=== PATIENT | male | born 1975 | race Two or more races ===

== ENCOUNTER 2017-11-15 23:46 | Emergency (ER) | payer OTHER ==
[~2017-11-15] VITALS: Ht 175.3 cm; Wt 86.2 kg
[~2017-11-15 23:46] MED LIST: CIPROFLOXACIN500 M2 ORAL
[2017-11-16 01:09] LABS: BASOPHILS % (AUTO) 0.6 % (0.0-2.0); EOSINOPHILS % (AUTO) 1.3 % (0.0-3.0); HEMATOCRIT 52.7 % (42.0-52.0); HEMOGLOBIN 17.7 G/DL (14.2-18.0); LYMPHOCYTES % (AUTO) 25.4 % (20.0-45.0); MEAN CORPUSCULAR VOLUME 92 FL (80-99); MONOCYTES % (AUTO) 11.9 % (1.0-10.0); NEUTROPHILS % (AUTO) 60.7 % (45.0-75.0); PLATELET COUNT 255 K/UL (150-450); RED BLOOD COUNT 5.75 M/UL (4.70-6.10); RED CELL DISTRIBUTION WIDTH 11.4 % (11.6-14.8); WHITE BLOOD COUNT 7.4 K/UL (4.8-10.8)
[2017-11-16 01:12] LABS: APPEARANCE,URINE CLEAR; BILIRUBIN, URINE NEGATIVE (NEGATIVE); GLUCOSE, URINE (UA) NEGATIVE (NEGATIVE); KETONES,URINE NEGATIVE (NEGATIVE); LEUKOCYTE ESTERASE ,URINE 1+ (NEGATIVE); NITRITE,URINE NEGATIVE (NEGATIVE); PH,URINE 5 (4.5-8.0); PROTEIN,URINE 2+ (NEGATIVE); UROBILINOGEN,URINE NORMAL MG/DL (0.0-1.0)
[2017-11-16 01:18] LABS: COLOR,URINE YELLOW
[2017-11-16 01:19] LABS: ANION GAP 8 mmol/L (5-15); BLOOD UREA NITROGEN 19 mg/dL (7-18); CALCIUM 8.2 MG/DL (8.5-10.1); CARBON DIOXIDE 29 MMOL/L (21-32); CHLORIDE 103 MMOL/L (98-107); CREATININE 1.2 MG/DL (0.55-1.30); POTASSIUM 3.6 MMOL/L (3.5-5.1); SODIUM 140 MMOL/L (136-145)
--- NOTE | 2017-11-16 01:44 | Emergency Room Report ---
History of Present Illness General Chief Complaint: Male Urogenital Problems Source: Patient Present Illness HPI Is a 41-year-old male with a history of renal cell carcinoma status post nephrectomy on the left side. He presents with chief complaint of hematuria. Onset was around [place] time. And then now. Out of pain to the left side. No fever chills denies any vomiting. No clots. Similar symptom in the past. His second complaint is right elbow pain. He works for [employer] and does a lot of heavy lifting. Pain with extension. No trauma. No nausea no vomiting. Worse with movement. Allergies: Coded Allergies: No Known Allergies (Unverified , 10/17/16) Patient History Past Medical History: see triage record, old chart reviewed Past Surgical History: other Pertinent Family History: none Social History: Denies: smoking Immunizations: other Reviewed Nursing Documentation: PMH: Agreed, PSxH: Agreed Nursing Documentation-PM Hx Cancer: Yes - kidney, sx 2014 Review of Systems Eye: Denies: eye pain, blurred vision ENT: Denies: ear pain, nose congestion, throat swelling Respiratory: Denies: cough, shortness of breath Cardiovascular: Denies: chest pain, palpitations Gastrointestinal: Denies: abdominal pain, diarrhea, nausea, vomiting Genitourinary: Reports: hematuria Musculoskeletal: Reports: joint pain, Denies: back pain Skin: Denies: rash Neurological: Denies: headache, numbness Endocrine: Denies: increased thirst, increased urine Hematologic/Lymphatic: Denies: easy bruising All Other Systems: negative except mentioned in HPI Physical Exam Vital Signs Date Time Temp Pulse Resp B/P (MAP) Pulse Ox O2 Delivery O2 Flow Rate FiO2 11/15/17 23:48 98.4 111 18 184/120 100 Room Air vitals with high blood pressure Sp02 EP Interpretation: reviewed, normal General Appearance: well appearing, no apparent distress, alert Head: normocephalic, atraumatic Eyes: bilateral eye PERRL, bilateral eye EOMI ENT: hearing grossly normal, normal pharynx Neck: full range of motion, supple, no meningismus Respiratory: chest non-tender, lungs clear, normal breath sounds Cardiovascular #1: regular rate, rhythm, no murmur Gastrointestinal: normal bowel sounds, non tender, no mass, no organomegaly, no bruit, non-distended Musculoskeletal: back normal, gait/station normal, normal range of motion, other - Tenderness to the elbow on full extension. Sensation nomal Psychiatric: mood/affect normal Skin: warm/dry Medical Decision Making Diagnostic Impression: Primary Impression: Hematuria Qualified Codes: R31.9 - Hematuria, unspecified Additional Impressions: Sprain of right elbow Qualified Codes: S53.401A - Unspecified sprain of right elbow, initial encounter Hypertension Qualified Codes: I10 - Essential (primary) hypertension Proteinuria Qualified Codes: R80.9 - Proteinuria, unspecified ER Course Patient presents with hematuria. There is no evidence of infection or obstruction. Discharge home with followup with urology. He will need a cystoscopy to rule out neoplastic process. He does have her blood pressure but never been on medication other than for surgery. No evidence of end organ damage. We'll discharge home. Lab Results Impression labs unremarkable CT/MRI/US Diagnostic Results CT/MRI/US Diagnostic Results : Imaging Test Ordered: CT abdomen and pelvis Impression Read by radiologist. No renal stone or hydronephrosis. Postsurgical changes. Normal appendix. Last Vital Signs Date Time Temp Pulse Resp B/P (MAP) Pulse Ox O2 Delivery O2 Flow Rate FiO2 11/15/17 23:48 98.4 111 18 184/120 100 Room Air Status: improved Disposition: HOME, SELF-CARE Condition: Stable Scripts Lisinopril (LISINOPRIL*) 20 Mg Tablet 20 MG ORAL DAILY, #90 TAB Prov: DALIA BECERRA M.D. 11/16/17 Additional Instructions: Followup with your DrDemarcus for referral to see a urologist. You would need a cystoscopy to rule out any cancerous lesions. Return if symptom worsen. Followup with your doctor in a week. DALIA BECERRA M.D. Nov 16, 2017 01:44
[2017-11-16 01:55] VITALS: BP 169/115
[2017-11-16] MEDS ORDERED: LISINOPRIL20 MG ORAL (03:01)
[2017-11-16 03:09] VITALS: BP 159/115
--- NOTE | 2017-11-16 10:53 | Diagnostic Imaging Report ---
Indication: Left flank pain Technique: Spiral acquisitions obtained through the abdomen and pelvis. No oral or IV contrast utilized, per urinary stone protocol. Multiplanar reconstructions were generated. Total dose length product 838.12 mGycm. CTDIvol(s) 15.47 mGy. Dose reduction achieved using automated exposure control Comparison: none Findings: No renal or ureteral calculi, hydronephrosis, or hydroureter. Lack of IV contrast limits assessment of the renal parenchyma. No gross renal parenchymal mass or cyst demonstrated. There is slight contour deformity of the upper pole of the left kidney with adjacent linear opacities likely reflecting postsurgical changes. The bladder is unremarkable. Lack of IV contrast limits assessment of the other solid organs. The liver is diffusely mildly hypoattenuating, consistent with fatty change. The gallbladder, bile ducts, pancreas, spleen, adrenals are unremarkable. There is an accessory splenule. No retroperitoneal or mesenteric mass or adenopathy. No pelvic mass or adenopathy. Normal appendix. No evidence of diverticulosis or diverticulitis. No small bowel distention. There is a tiny fat-containing umbilical hernia. No free or loculated intraperitoneal air or fluid is evident. The included lung bases are clear. The bones are unremarkable. Impression: No acute abnormality. Negative for evidence of urinary stone disease or obstructive uropathy Abnormal left renal upper pole, likely reflecting postsurgical changes. Correlate with surgical history Fatty liver This agrees with the preliminary interpretation provided overnight by [facility]eradiology service. The CT scanner at [facility] is accredited by the [employer] and the scans are performed using protocols designed to limit radiation exposure to as low as reasonably achievable to attain images of sufficient resolution adequate for diagnostic evaluation.
== END 2017-11-16 03:09 | disposition home or self-care (01) ==
LOC: EMR 11-16 00:20
DX: R30.0 Dysuria (principal); S53.401A Unspecified sprain of right elbow, initial encounter; X50.0XXA Overexertion from strenuous movement or load, initial encounter; Y92.89 Other specified places as the place of occurrence of the external cause; I10 Essential (primary) hypertension; K76.0 Fatty (change of) liver, not elsewhere classified
CPT/HCPCS: 36415; 74176; 80048; 81003; 85025; 96360; 99284